=== PATIENT | male | born 1980 | race Caucasian/White ===

== ENCOUNTER → 2017-09-03 10:20 | Outpatient (CLI) | payer OTHER, SELFPAY ==
[2017-09-04 10:03] LABS: Vitamin B12 473 pg/mL (211-911); Vitamin D,25 Hydroxy 39.4 ng/mL (29.95-100.01)
[2017-09-08 14:07] LABS: Testosterone, Free 8.37 ng/dL (5.00-21.00)
[2017-09-08 14:28] LABS: Testosterone, % Free 2.65 % (1.50-4.20); Testosterone, Total 316 ng/dL (264-916)
== END ==
PROVIDERS: Visit Provider Family Medicine
DX: E34.9 Endocrine disorder, unspecified (principal); E53.8 Deficiency of other specified B group vitamins; E55.9 Vitamin D deficiency, unspecified
CPT/HCPCS: 36415; 82306; 82607; 84402; 84403

== ENCOUNTER → 2019-04-21 15:14 | Outpatient (CLI) | payer OTHER, SELFPAY ==
[2018-05-02 17:41] VITALS: BMI 26.3
[2019-04-21 16:15] LABS: Hematocrit 49.8 % (40-54); Hemoglobin 17.4 g/dL (13.0-16.5); Mean Corp Hgb Conc 34.9 g/dL (32-36); Mean Corpuscular Hgb 32.7 pg (27.0-32.0); Mean Corpuscular Volume 93.6 fL (80-94); Mean Platelet Vol. 10.1 fl (6.2-12.0); Platelet Count 235 K/mm3 (150-450); RBC Distribution Width CV 11.1 % (11.6-14.6); RBC Distribution Width SD 37.6 fl (35.1-43.9); Red Blood Count 5.32 M/mm3 (4.6-6.2); White Blood Count 6.2 K/mm3 (4.4-11.0)
[2019-04-21 16:21] LABS: Anion Gap 2 (5-15); BUN 14 mg/dL (7-18); Chloride 106 mmol/L (98-107); Creatinine, Serum 0.93 mg/dL (0.70-1.30); EST Glomerular Filtration Rate 95 mL/min (>60); Est Glom Filt Rate - Afr Amer 115 mL/min (>60); Glucose 119 mg/dL (74-106); Potassium 4.2 mmol/L (3.5-5.1); Sodium Level 140 mmol/L (136-145); Thyroid Stim Hormone (TSH) 1.37 uIU/mL (0.358-3.74)
[2019-04-22 09:08] LABS: Vitamin B12 350 pg/mL (211-911); Vitamin D,25 Hydroxy 18.1 ng/mL (29.95-100.01)
[2019-04-23 16:06] LABS: Ferritin 353 ng/mL (26-388); Iron 136 ug/dL (65-175); Iron Binding Capacity,Total 292 ug/dL (250-450); PERCENT IRON SATURATION 46.6 % (15.0-55.0)
== END ==
PROVIDERS: Family Provider Family Medicine; PCP Family Medicine; Visit Provider Family Medicine
DX: R40.0 Somnolence (principal)
CPT/HCPCS: 36415; 80048; 82306; 82607; 82728; 82746; 83540; 83550; 84443; 85027

== ENCOUNTER 2019-07-15 18:00 | Outpatient (RCR) | payer OTHER, SELFPAY ==
[2018-05-02 17:41] VITALS: BMI 26.3
--- NOTE | 2019-06-03 19:04 | HP.PTEVAL_ITS ---
Patient's Visit Information ISRA MITCHELL is a 38 year old M referred to Physical Therapy by Raphael Moctezuma MD with a diagnosis of LOW BACK PAIN FIBROMAYALGIA. Date of Evaluation: 06/03/19 Physical Therapist: Dominick Damon PT, Cert MDT, OCS - Visit Plan Frequency: 2x /Week Duration: 4 Weeks Plan: PT INMTERVENTIONS GRADED LUMBAR ROM,DLS ABD/BACK,POSTURAL EX'S,LE FLEXABLITY - Subjective Findings: This 38 y/o male presents to physical therapy with low back pain.Patient has LBP 20 years which developed in cfronic pain. Patient over the years has had MRI's,CATSCAN,NERVE CODUCTION which is - no etiology - 10 years ago.Patient has been on pain Ultram.Too much intactivity makes symptoms wosre. 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 Patient pain is located lumbar symmtrical decraibed ache/tightness. Aggravatingfactors standing,walking bending ,lifting pain is 24/7 symptoms contstant. Alleviating factors movement some better. Denies parathesia/tingling. Hien//bladder -. Coughing/sneezing -. Pateint sleeping good. Patient symptoms affects QOL/ADLS job demands. Patient seen chiropractor didnt help. SOCAIL: . VOCATION: retired,wireless sales manager maintaince - Pain Bilateral Back Pain Intensity (Out of 10): 6 Pain Intensity Range: 10 - Objective POSTURE: milf foward posture. GAIT: reciprocal pattern. NEURO: denies parathesia/tingling ,reflexes L3-4,L4-5,L5-S1. SYMMTRIES: alighn. PALAPTION: unremarkable. MMT: quads/hams/hip 4/5 ,ankle 5/5. FLEXABLITY: hams mod tight. LUMBAR ROM: flexion WFL,extension mod /severe loss hurt,side glides min loss. MUSCULAR ENDURANCE: FAIR 30SEC HOLD BEFORE INCREASE LORDISIS - Special Tests L/S Slump test left side: Negative L/S Slump test right side: Negative L/S Left Straight Leg Raise: Negative L/S Right Straight Leg Raise: Negative Lumbar Standing: Flexion - Mechanical Response: No effect Lumbar Standing: Flexion - Symptoms During Testing: No effect Lumbar Standing: Flexion - Symptoms After Testing: No effect Lumbar Standing: Extension - Mechanical Response: No effect Lumbar Standing: Extension - Symptoms During Testing: Increases Lumbar Standing: Extension - Symptoms After Testing: No worse Lumbar Standing: Right Side Glides - Mechanical Response: No effect Lumbar Standing: Right Side [place] - Symptoms During Testing: No effect Lumbar Standing: Right Side [place] - Symptoms After Testing: No effect Lumbar Standing: Left Side [place] - Mechanical Response: No effect Lumbar Standing: Left Side [place] - Symptoms During Testing: No effect Lumbar Standing: Left Side [place] - Symptoms After Testing: No effect - Goals Goal 1:: Independant with HEP Goal Time Frame: 4-6 Weeks Goal 2:: Independant with posture/body mechanics Goal Time Frame: 4-6 Weeks Goal 3:: Decrease low back pain by 50% or > to improve function Goal Time Frame: 4-6 Weeks Goal 4:: Patient improve lumbar ROM for function of recovery Goal Time Frame: 4-6 Weeks Goal 5:: Patient to improve back owestry score by 5 points or > to improve QOL. - Rehabilitation Potential Physical Therapy Diagnosis: This patient has symmtrical lumbar pain with chronic symptoms poor lumbar extension,pain derease core strength ,tight hamstrings thus benifit from skilled PT . Rehabilitation Potential: Good - Anticipated Interventions Patient/Client Instruction: Educate patient on: Condition, Plan of Care For the Purpose of:: To decrease pain, To increase ROM, To improve muscle performance and motor function, To improve ability to perform ADL's, To increase tolerance to activity/condition/position, To improve ability of physical actions for home/community/work/leisure, To improve health of tissue, To decrease soft tissue restriction, To increase flexibility/ROM, To improve endurance, To reduce risk of recurrence, To improve ability to perform tasks related to life management Therapeutic Exercise to Include: Strength training, Body mechanics, Postural training, Flexibilty training, Dynamic Lumbar Stabilization For the Purpose of:: To decrease pain, To increase ROM, To improve muscle performance and motor function, To increase tolerance to activi ty/condition/position, To improve ability of physical actions for home/community/work/leisure, To improve health of tissue, To decrease soft tissue restriction, To increase flexibility/ROM TENS: Yes IF ES: Yes Cryotherapy (ice pack, ice massage): Yes Thermo therapy (hot pack): Yes Ultrasound (thermal/non thermal): Yes For the Purpose of:: To decrease pain, To increase ROM, To improve nutrient delivery to tissue, To increase oxygenation perfusion, To improve health of tissue, To decrease soft tissue restriction, To increase flexibility/ROM Thank you for the opportunity to evaluate your patient. For Medicare and Medicare HMO plans, please review the plan of care and approve it. It will need to be FAXED BACK to us at [phone] for Medicare purposes. For Medicare only, by signing this I certify the plan of care. Please let me know if there are questions or concerns regarding this plan of care. Physician Signature: Date:
--- NOTE | 2019-11-27 10:41 | HP.PT.NRP ---
ISRA MITCHELL was seen in my office for initial evaluation on 06/03/19. The following Plan of Care was established for this patient: Initial Frequency: 2x /Week Initial Duration: 4 Weeks Patient/Client Instruction: Educate patient on: Condition, Plan of Care For the Purpose of:: To decrease pain, To increase ROM, To improve muscle performance and motor function, To improve ability to perform ADL's, To increase tolerance to activity/condition/position, To improve ability of physical actions for home/community/work/leisure, To improve health of tissue, To decrease soft tissue restriction, To increase flexibility/ROM, To improve endurance, To reduce risk of recurrence, To improve ability to perform tasks related to life management Therapeutic Exercise to Include: Strength training, Body mechanics, Postural training, Flexibilty training, Dynamic Lumbar Stabilization For the Purpose of:: To decrease pain, To increase ROM, To improve muscle performance and motor function, To increase tolerance to activity/condition/position, To improve ability of physical actions for home/community/work/leisure, To improve health of tissue, To decrease soft tissue restriction, To increase flexibility/ROM TENS: Yes IF ES: Yes Cryotherapy (ice pack, ice massage): Yes Thermo therapy (hot pack): Yes Ultrasound (thermal/non thermal): Yes For the Purpose of:: To decrease pain, To increase ROM, To improve nutrient delivery to tissue, To increase oxygenation perfusion, To improve health of tissue, To decrease soft tissue restriction, To increase flexibility/ROM This patient was last seen in our office 06/03/19. Pertinent comments regarding their Physical therapy will appear below: Patient seen for PT for lumbar pain focusing on DLS with patient improving with less pain thus is d/c . At this point I will be discontinuing this patient from physical therapy. I would be happy to see this patient again in the future if found appropriate by the physician. Thank you! Dominick Damon, PT, Cert MDT, OCS
== END 2019-07-15 19:00 | disposition home or self-care (01) ==
LOC: PT 18:00
PROVIDERS: PCP Family Medicine; Visit Provider Family Medicine
DX: M79.7 Fibromyalgia (principal); M54.5 Low back pain
CPT/HCPCS: 97110; 97161

== ENCOUNTER → 2020-05-12 16:02 | Outpatient (CLI) | payer OTHER, SELFPAY ==
[2018-05-02 17:41] VITALS: BMI 26.3
[2020-05-12 17:50] LABS: Hematocrit 46.5 % (40-54); Hemoglobin 15.9 g/dL (13.0-16.5); Mean Corp Hgb Conc 34.2 g/dL (32-36); Mean Corpuscular Hgb 31.9 pg (27.0-32.0); Mean Corpuscular Volume 93.4 fL (80-94); Mean Platelet Vol. 10.1 fl (6.2-12.0); Platelet Count 256 K/mm3 (150-450); RBC Distribution Width CV 11.1 % (11.6-14.6); RBC Distribution Width SD 37.7 fl (35.1-43.9); Red Blood Count 4.98 M/mm3 (4.6-6.2); White Blood Count 6.3 K/mm3 (4.4-11.0)
[2020-05-12 18:12] LABS: ALB/GLOB Ratio 1.3 RATIO (0.9-2.4); AST(SGOT) 23 U/L (15-37); Alanine Aminotransfer ALT/SGPT 47 U/L (16-61); Albumin, Serum 4.3 g/dL (3.2-5.0); Alkaline Phosphatase 125 U/L (45-117); Anion Gap 4 (5-15); BUN 14 mg/dL (7-18); BUN/Creat Ratio 16.7 RATIO (10-20); Calcium,Total 8.6 mg/dL (8.5-10.1); Chloride 105 mmol/L (98-107); Creatinine, Serum 0.84 mg/dL (0.70-1.30); EST Glomerular Filtration Rate 107 mL/min (>60); Est Glom Filt Rate - Afr Amer 130 mL/min (>60); Globulin 3.3 g/dL (2.2-4.2); Glucose 65 mg/dL (74-106); Potassium 3.5 mmol/L (3.5-5.1); Protein, Total 7.6 g/dL (6.4-8.2); Sodium Level 139 mmol/L (136-145)
[2020-05-12 18:59] LABS: Vitamin B12 > 2000 pg/mL (211-911)
[2020-05-12 19:00] LABS: Vitamin D,25 Hydroxy 29.9 ng/mL
== END ==
PROVIDERS: Family Medicine; PCP Family Medicine; Visit Provider Family Medicine
DX: E55.9 Vitamin D deficiency, unspecified (principal); E53.8 Deficiency of other specified B group vitamins; F32.9 Major depressive disorder, single episode, unspecified
CPT/HCPCS: 36415; 80053; 82306; 82607; 85027

== ENCOUNTER 2020-08-06 08:59 | Outpatient (RCR) | payer OTHER, SELFPAY ==
[2018-05-02 17:41] VITALS: BMI 26.3
== END 2020-09-22 23:59 ==
LOC: IMMUN 08:59
PROVIDERS: PCP Family Medicine; Referring Provider Family Medicine; Visit Provider Family Medicine
DX: Z23 Encounter for immunization (principal)
CPT/HCPCS: 0001A; 0002A; 91300

== ENCOUNTER → 2020-08-10 16:02 | Outpatient (CLI) | payer OTHER, SELFPAY ==
[2018-05-02 17:41] VITALS: BMI 26.3
[2020-08-10 18:23] LABS: Vitamin B12 1864 pg/mL (211-911); Vitamin D,25 Hydroxy 31.5 ng/mL
== END ==
PROVIDERS: PCP Family Medicine; Visit Provider Family Medicine
DX: E53.8 Deficiency of other specified B group vitamins (principal); E55.9 Vitamin D deficiency, unspecified
CPT/HCPCS: 36415; 82306; 82607

== ENCOUNTER 2023-02-06 18:17 | Emergency (ER) | payer OTHER, SELFPAY ==
[2023-02-06 18:19] VITALS: BP 132/82; PULSE 76; RESP 17; TEMP 36.4; O2SAT 98; BMI 28.4
--- NOTE | 2023-02-06 18:25 | US_ITS ---
STUDY: SCROTUM ULTRASOUND REASON FOR EXAM: Male, 42 years old. PAIN TECHNIQUE: Ultrasound evaluation of the scrotum was performed with color Doppler and static weaver-scale imaging. COMPARISON: None. FINDINGS: RIGHT TESTICLE INTRATESTICULAR: There is a normal size of the right testicle. The right testicle measures 4.4 x 3.1 x 2.4 cm. There is a homogenous echotexture. There is normal arterial and normal venous vascularity. There is no demonstrated right testicular mass or cyst. EXTRATESTICULAR: The epididymis is normal in size. The epididymis head measures 1.0 x 1.2 x 1.2 cm. There is normal vascularity of the epididymis. There is a well-defined cystic structure within the epididymis, without internal echoes, consistent with an epididymal cyst. There is no demonstrated hydrocele. There is no demonstrated varicocele. There is no demonstrated extratesticular mass or cyst. LEFT TESTICLE INTRATESTICULAR: There is a normal size of the left testicle. The left testicle measures 4.0 x 2.6 x 2.6 cm. There is a homogenous echotexture. There is normal arterial and normal venous vascularity. There is no demonstrated left testicular mass or cyst. EXTRATESTICULAR: The epididymis is normal in size. The epididymis head measures 0.9 x 1.4 x 1.1 cm. There is normal vascularity of the epididymis. There is no demonstrated epididymal cystic structure. There is no demonstrated hydrocele. There is no demonstrated varicocele. There is no demonstrated extratesticular mass or cyst. US/Testicular with Arterial Flow IMPRESSION: Normal bilateral testicles. Electronically Signed: Julian Roblero MD at 19:34 EDT ,
--- NOTE | 2023-02-06 21:08 | EDS_ITS ---
HPI History of Present Illness Chief Complaint: Male Pain/Injury Informant: patient and spouse/S.O. Pain Onset: Days (4) Context: Gradual Onset Timing: Continuous Worsened by: Sitting Relieved by: Nothing Narrative Narrative: Patient presents with right testicular pain that has been getting worse over the last 4 days. Patient describes pain as aching. Patient states the pain radiates into his right inguinal area. Patient states it is worse with sitting. Patient denies any fevers or chills. Patient denies any nausea or vomiting. Patient denies any dysuria or hematuria. Patient denies any back pain. Patient denies any urethral discharge. Patient states he saw his primary care physician for this today. Patient was then referred to the emergency department for testicular ultrasound. [facility] Medical History Acute pharyngitis, unspecified COVID-19 Home Medications ciprofloxacin HCl 500 mg tablet 500 mg PO BID #14 TABLETS 02/06/23 [Rx Last Taken Unknown] escitalopram oxalate 10 mg tablet 10 mg PO DAILY 02/06/23 [History Last Taken Unknown] tramadol 200 mg tablet,extended release 24 hr 200 mg PO Q24H 02/06/23 [History Last Taken Unknown] tramadol 50 mg tablet 50 mg PO DAILY PRN 02/06/23 [History Last Taken Unknown] Allergy/AdvReac Type Severity Reaction Status Date / Time amoxicillin [From Augmentin] AdvReac Rash Verified 02/06/23 18:19 clavulanic acid AdvReac Rash Verified 02/06/23 18:19 [From Augmentin] Surgical History no surgical history no surgical history Social History Smoking Status: Never smoker ROS ROS ED Constitutional Constitutional ED: Denies chills or fever(s) Eyes Eyes: Denies blurry vision or change in vision ENT ENT ED: Denies rhinorrhea or sore throat Cardiovascular Cardiovascular: Denies chest pain or palpitations Respiratory/Chest Respiratory/Chest: Denies cough or dyspnea Gastrointestinal Gastrointestinal: Denies nausea or vomiting Genitourinary Genitourinary ED: Reports as per HPI and testicular swelling; Denies dysuria or hematuria Musculoskeletal Musculoskeletal: Denies back pain or neck pain Integumentary Denies abscess or rash Neurologic Neurologic: Denies headache(s) or weakness Allergic/Immunologic Allergic/Immunologic ED: Denies mouth swelling or urticaria EXAM Physical Exam Const Vital Signs: 02/06/23 18:19 Temperature 97.6 F L Temperature Source Temporal Pulse Rate 76 Respiratory Rate 17 Blood Pressure 132/82 H Blood Pressure Mean 98 Pulse Ox 98 Oxygen Delivery Method Room Air Positive well nourished and well developed General Appearance ED: well developed and NAD HEENT Reports moist mucous membranes Neck supple and no JVD Resp normal respiratory effort and clear to auscultation bilaterally Cardio regular rate and regular rhythm GI non-tender and non-distended Auscultation: normoactive bowel sounds Palpation: soft Narrative: There isThere is tenderness over the right testicle. There is a vertical lie. The epididymis is posterior. There is tenderness mainly over the epididymis. Is mild edema of the right testicle. There is no mass palpated. There is no inguinal hernia noted. Testes: testicular swelling Extremity normal to inspection Neuro oriented x3, CN's II-XII intact bilaterally, moves all extremities, no focal motor deficits and no sensory deficits noted Sensorium / Orientation: alert Motor Exam: strength 5/5 throughout Psych mental status grossly normal MDM MDM MDM Narrative Medical decision making narrative: Differential diagnosis includes testicular torsion and epididymitis. Testicular ultrasound will be obtained to assess for testicular torsion. Radiography Diagnostic Testing: Clinical Impression(s) from Imaging Studies Testicular Ultrasound 02/06/23 18:25 IMPRESSION: Normal bilateral testicles. Electronically Signed: Julian Roblero MD at 19:34 EDT , Testicular ultrasound was obtained. The testicles are normal bilaterally. This was interpreted by the radiologist and was also independently reviewed by myself. Treatment and Re-Evaluation Narrative: Patient was advised of his findings. Patient was advised that this is most likely epididymitis. Patient will be given a prescription for Cipro. Patient was instructed to follow-up with his primary care physician in 5 to 7 days for reevaluation. Patient was instructed to continue his tramadol as needed for pain. Patient understood and was agreeable with the plan. All questions were answered. Discharge Plan Triage Chief Complaint: Male Pain/Injury ED Provider: Aly Lopez Dx/Rx/DC Orders Clinical Impression: Epididymitis Instructions: ED Epididymitis Prescriptions: New ciprofloxacin HCl [ciprofloxacin HCl] 500 mg tablet 500 mg PO BID Qty: 14 0RF No Action tramadol 50 mg tablet 50 mg PO DAILY PRN escitalopram oxalate 10 mg tablet 10 mg PO DAILY tramadol 200 mg tablet extended release 24 hr 200 mg PO Q24H Primary Care Provider: Raphael Moctezuma Referrals: Raphael Moctezuma MD [Primary Care Provider] - 5-7 Days Disposition Disposition: Home, Self Care
[2023-02-06 21:37] VITALS: BP 128/67; PULSE 72; RESP 18; TEMP 37.2
== END 2023-02-06 21:39 | disposition home or self-care (01) ==
PROVIDERS: Emergency Provider Emergency Medicine; PCP Family Medicine; Visit Provider Emergency Medicine
DX: N45.1 Epididymitis (principal); Z86.16 Personal history of COVID-19
CPT/HCPCS: 76870; 93976; 99282

== ENCOUNTER 2023-08-12 16:33 | Emergency (ER) | payer OTHER, SELFPAY ==
[2023-08-12 16:33] VITALS: BP 137/83; PULSE 89; RESP 16; TEMP 36.4; O2SAT 96; BMI 27.8
--- NOTE | 2023-08-12 16:43 | EX.ED.UPPERE ---
HPI History of Present Illness Chief Complaint: Laceration Detail of Chief Complaint: 3 lacerations dorsal surface right long finger Informant: patient and spouse/S.O. Occured/Mechanism Mechanism/Context: Yes injury and Yes blunt trauma Onset/Context/Timing Onset: Today and Hours Context: Sudden Onset Timing: Continuous Quality of Pain: Dull and Throbbing Location: Middle and proximal phalanx right long finger Current Severity: Mild Maximum Severity: Moderate Worsened by: Palpation Relieved by: Improves with rest Associated Symptoms Associated Symptoms: Negative for Parasthesia, Weakness or Loss of Funtion Narrative Narrative: Patient is a 42-year-old [id number] male. Tetanus was approximate 5 years ago. He presents with blunt injury to his right long finger. He states the bracket on the garage door twisted and struck his finger. He has a total of 3 laceration on the dorsal surface. 2 are near the proximal portion of the proximal phalanx and 1 is distal of the DIP joint. He denies paresthesia, anesthesia or motor weakness. Tetanus Immunization: 5-10 years Prior similar symptoms: No Recent Illness/Hospitalization: No PFSH PFS Medical History Acute pharyngitis, unspecified COVID-19 Home Medications ciprofloxacin HCl 500 mg tablet 500 mg PO BID #14 TABLETS 02/06/23 [Rx Last Taken Unknown] escitalopram oxalate 10 mg tablet 10 mg PO DAILY 02/06/23 [History Last Taken Unknown] tramadol 200 mg tablet,extended release 24 hr 200 mg PO Q24H 02/06/23 [History Last Taken Unknown] tramadol 50 mg tablet 50 mg PO DAILY PRN 02/06/23 [History Last Taken Unknown] clindamycin HCl 300 mg capsule (Cleocin HCl) 300 mg PO Q6H #12 CAPSULES 08/12/23 [Rx Last Taken Unknown] Allergy/AdvReac Type Severity Reaction Status Date / Time amoxicillin [From Augmentin] AdvReac Rash Verified 08/12/23 16:35 clavulanic acid AdvReac Rash Verified 08/12/23 16:35 [From Augmentin] Social History (Updated 08/12/23 @ 16:[address] Chaparro Lake MD) household members: spouse and children Smoking Status: Never smoker ROS ROS ED Neurologic Neurologic: Denies paresthesias or weakness Hematologic/Lymphatic Hematologic/Lymphatic: Denies easy bleeding or easy bruising EXAM Physical Exam Const Vital Signs: 08/12/23 16:33 Temperature 97.5 F L Temperature Source Temporal Pulse Rate 89 Respiratory Rate 16 Blood Pressure 137/83 H Blood Pressure Mean 101 Pulse Ox 96 Oxygen Delivery Method Room Air Positive well nourished and well developed General Appearance ED: well developed and NAD HEENT normocephalic and atraumatic Eyes PERRL and EOMs intact bilaterally Neck full ROM Resp normal respiratory effort Cardio regular rate and regular rhythm Extremity Negative for normal to inspection Extremity Narrative: There is soft tissue swelling with discoloration and pain evaluation of the proximal phalanx. There is 2 lacerations near the knuckle of the right long finger. The extensor commonest tendon is functionally intact. The flexor digitorum superficialis and flexor digitorum profundus are intact. Capillary refill is normal. Sensation is normal. Neuro oriented x3 and CN's II-XII intact bilaterally Neuro Narrative: Median, radial and ulnar function intact. Sensorium / Orientation: alert Psych mental status grossly normal Skin Skin Narrative: Lacerations dorsal surface right long finger MDM MDM MDM Narrative Medical decision making narrative: X-ray was obtained to determine fracture versus contusion. If there is a fracture this will require antibiotics. Digit was excised by metacarpal nerve block. Wound was irrigated. Please see procedure note Radiography Chest X-Ray - ED: Read by ED Physician (Three-view x-ray of the right long finger reveals a small type fracture shaft proximal phalanx radial side. There is no radiolucent line to the opposite cortex. This is apparently reviewed interpreted by me at 1721) Procedures Other Procedures Procedure(s): There is a linear laceration only proximal portion of the right long finger that is 2 cm in length and there is a V-shaped laceration on the dorsal surface near the MCP joint that is 1 cm in length and there is a linear laceration 2 and half centimeters distal ulnar side of the finger. The digit was anesthetized by metacarpal block followed by a digital block. Wound was irrigated with a total of 500 cc of normal saline total. Using 5-0 Ethilon simple interrupted sutures placed. The longer the 2 proximal laceration required 3 in the V-shaped required 2. The distal laceration required 3. There is a total of 8 stitches. Discharge Plan Triage Chief Complaint: Laceration ED Provider: Chaparro Lake Dx/Rx/DC Orders Clinical Impression: Open fracture of proximal phalanx of right middle finger, Laceration of finger, right Instructions: ED Fracture, Finger, Open, ED Laceration Extremity Prescriptions: New clindamycin HCl [Cleocin HCl] 300 mg capsule 300 mg PO Q6H Qty: 12 0RF No Action tramadol 50 mg tablet 50 mg PO DAILY PRN escitalopram oxalate 10 mg tablet 10 mg PO DAILY tramadol 200 mg tablet extended release 24 hr 200 mg PO Q24H ciprofloxacin HCl [ciprofloxacin HCl] 500 mg tablet 500 mg PO BID Qty: 14 0RF Primary Care Provider: J Carlos Moctezuma Referrals: J Carlos Moctezuma MD [Primary Care Provider] - Lio Kay DO [Med Staff - Active Staff] - 2 Days for wound check Activity Restrictions/Additional Instructions: 1. Keep wounds absolutely clean and dry 2. You may change the tape on the splint every 2 to 3 days 3. Take antibiotics until gone 4. Wear splint at all times Disposition Disposition: Home, Self Care
--- NOTE | 2023-08-12 16:45 | RAD_ITS ---
EXAM: XR RIGHT FINGERS, 2 OR MORE VIEWS CLINICAL INDICATION: Injury/Pain -- Long finger over middle and proximal phalanx TECHNIQUE: Frontal, lateral and oblique views of the fingers of the right hand. COMPARISON: No relevant prior studies available. FINDINGS: BONES/JOINTS: There is a small cortical fracture of the proximal third phalanx. There is a small radiopaque foreign bodies. Preservation of the joint space. No sclerotic or destructive changes observed. SOFT TISSUES: Soft tissues. No soft tissue swelling or gas. No radiopaque foreign body. RAD/Finger(s) Min 2 Views IMPRESSION: Cortical irregularity of the proximal third phalanx compatible with a small fracture. There are also radiopaque foreign bodies in the overlying soft tissues. Electronically Signed: Yoni Moreno MD at 17:48 EDT ,
[2023-08-12] MEDS: Lidocaine 1% (20 ml mdv) 20 ML Vial INFILT (16:56)
[2023-08-12] MEDS: Clindamycin HCl 150 MG Capsule 300 MG PO (16:57)
[2023-08-12] MEDS: Diphth,Pertuss(Acell),Tet Vac 0.5 ML Vial IM (17:07)
[2023-08-12 18:00] VITALS: BP 138/86; PULSE 78; RESP 18; TEMP 36.6; O2SAT 98
== END 2023-08-12 18:27 | disposition home or self-care (01) ==
LOC: ED 17:43
PROVIDERS: Emergency Provider Emergency Medicine; PCP Family Medicine; Visit Provider Emergency Medicine
DX: S62.642B Nondisplaced fracture of proximal phalanx of right middle finger, initial encounter for open fracture (principal); W26.8XXA Contact with other sharp object(s), not elsewhere classified, initial encounter; Y92.59 Other trade areas as the place of occurrence of the external cause
CPT/HCPCS: 12002; 73140; 90471; 90715; 99283

== ENCOUNTER → 2024-03-09 | Outpatient (CLI) | payer OTHER, SELFPAY ==
[2024-03-09 07:48] LABS: Hematocrit 47.8 % (40-54); Hemoglobin 16.8 g/dL (13.0-16.5); Mean Corp Hgb Conc 35.1 g/dL (32-36); Mean Corpuscular Hgb 32.2 pg (27.0-32.0); Mean Corpuscular Volume 91.6 fL (80-94); Mean Platelet Vol. 9.6 fl (6.2-12.0); Platelet Count 215 K/mm3 (150-450); RBC Distribution Width CV 11.1 % (11.6-14.6); RBC Distribution Width SD 37.5 fl (35.1-43.9); Red Blood Count 5.22 M/mm3 (4.6-6.2); White Blood Count 4.9 K/mm3 (4.4-11.0)
[2024-03-09 08:58] LABS: ALB/GLOB Ratio 1.2 RATIO (0.9-2.4); AST(SGOT) 18 U/L (15-37); Alanine Aminotransfer ALT/SGPT 44 U/L (16-61); Alkaline Phosphatase 129 U/L (45-117); Anion Gap 5 (5-15); BUN 10 mg/dL (7-18); BUN/Creat Ratio 12.2 RATIO (10-20); Calcium,Total 8.9 mg/dL (8.5-10.1); Chloride 107 mmol/L (98-107); Cholesterol 168 mg/dL (200); Creatinine, Serum 0.82 mg/dL (0.70-1.30); EST Glomerular Filtration Rate 108 mL/min (>60); Est Glom Filt Rate - Afr Amer 130 mL/min (>60); Globulin 3.2 g/dL (2.2-4.2); Glucose 102 mg/dL (74-106); High Density Lipoprotein 46 mg/dL; PSA,Total - Annual Screen 0.47 ng/mL (0.00-4.00); Potassium 4.3 mmol/L (3.5-5.1); Protein, Total 7.2 g/dL (6.4-8.2); Sodium Level 142 mmol/L (136-145); T4 Free Direct 0.98 ng/dL (0.76-1.46); Triglycerides 147 mg/dL; Uric Acid 5.4 mg/dL (3.5-7.2); Very Low Density Lipoprotein 29 mg/dL (5-40)
[2024-03-11 08:35] LABS: Vitamin B12 404 pg/mL (211-911); Vitamin D,25 Hydroxy 33.8 ng/mL
[2024-03-15 12:08] LABS: Testosterone, % Free 3.32 % (1.50-4.20); Testosterone, Free 13.61 ng/dL (5.00-21.00); Testosterone, Total 410 ng/dL (264-916)
== END | disposition home or self-care (01) ==
LOC: LAB 07:31
DX: Z00.00 Encounter for general adult medical examination without abnormal findings (principal); G89.4 Chronic pain syndrome
CPT/HCPCS: 36415; 80053; 80061; 82306; 82607; 83036; 84153; 84402; 84403; 84439; 84443; 84550; 85027; G0103

== ENCOUNTER 2024-12-23 18:30 | Outpatient (RCR) | payer OTHER, SELFPAY ==
--- NOTE | 2024-11-18 19:18 | HP.PTEVAL ---
Patient's Visit Information Visit Information Visit Information: ISRA MITCHELL is a 44 year old M referred to Physical Therapy by Dr. You Doe DO with a diagnosis of LUMBAR PAIN. Date of Evaluation: 11/18/24 Physical Therapist: Dominick Dmaon PT, Cert MDT, OCS Visit Plan Frequency: 2x /Week Duration: 4 Weeks Plan: PT INTERVENTIONS LUMBAR ROM ,FLEXABILITY ,DLS ,POSTURAL EX'S AND DLS Subjective Subjective: This 44 y/o male presents to physical therapy with lumbar pain. Patient has lumbar pain ~ [address] nazia HENDRIX. Patient has had PT in past . Patient has had no recent imaging . Patient has had prior PT . Patient medication ultram. Patient pain located symmetrical lumbar with radicular symptoms in legs described as burning. Patient aggravating factors sitting,to much of activity bending,lifting. Alleviating factors medication rest . Coughing/sneezing-. Bowel/bladder-.C/O paresthesia/tingling in legs. Pain doesn't affects sleeping. Patient has had no trauma/injury. Patient tried PT in past. Patient has had MRI/CTSCAN in past. Patient condition affects QOL and function. SOCIAL: VOCATION: Own business Pain Bilateral Back: Pain Intensity (Out of 10): 4 Pain Intensity Range: 8 Bilateral Lower Extremity: Pain Intensity (Out of 10): 6 Pain Intensity Range: 6, 7 and 8 Objective Objective: POSTURE: mild forward posture GAIT: reciprocal pattern PALPATION: tender paraspinals /erector spinal, NEURO: denies paresthesia/tingling ,reflexes L3-4,L4-5,L5-S1 3/3 MMT: quads/hams 4/5 ,hip flexion 4/5 ,ankle 5/5 LUMBAR ROM: flexion mod loss ,extension mod loss ,side glides mod loss , FLEXABILITY: hamstrings mod tight Special Tests L/S Slump test left side: Negative L/S Slump test right side: Negative L/S Left Straight Leg Raise: Negative L/S Right Straight Leg Raise: Negative Lumbar Standing: Flexion - Mechanical Response: No effect Lumbar Standing: Flexion - Symptoms During Testing: Increases Lumbar Standing: Flexion - Symptoms After Testing: No worse Lumbar Standing: Extension - Mechanical Response: No effect Lumbar Standing: Extension - Symptoms During Testing: Increases Lumbar Standing: Extension - Symptoms After Testing: No worse Lumbar Standing: Right Side Glides - Mechanical Response: No effect Lumbar Standing: Right Side [place] - Symptoms During Testing: Increases Lumbar Standing: Left Side [place] - Mechanical Response: No effect Lumbar Standing: Left Side [place] - Symptoms During Testing: Increases Lumbar Standing: Left Side [place] - Symptoms After Testing: No worse Lumbar Lying: Flexion - Mechanical Response: No effect Lumbar Lying: Flexion - Symptoms During Testing: Increases Lumbar Lying: Flexion - Symptoms After Testing: No worse Lumbar Lying: Extension - Mechanical Response: No effect Lumbar Lying: Extension - Symptoms During Testing: Increases Lumbar Lying: Extension - Symptoms After Testing: No worse Balance/Special Test Scores Oswestry Low Back Score: 19 Goals Goal 1:: Patient to be I with HEP for back Goal Time Frame: 4-6 Weeks Goal 2:: Patient to improve lumbar ROM for lumbar ROM for function of recovery for ADL and job demands Goal Time Frame: 4-6 Weeks Goal 3:: Patient to demonstrate 50% improvement with less pain and improved function with job demands Goal Time Frame: 4-6 Weeks Goal 4:: Patient to improve back oswestry score by 5 points to improve QOL and function Goal Time Frame: 4-6 Weeks Rehabilitation Potential Physical Therapy Diagnosis: This patient has lumbar pain with multiple level of lumbar dysfunction with pain ,poor lumbar ROM ,pain with positioning and motion testing end range thus benefit from skilled PT Rehabilitation Potential: Good Anticipated Interventions Patient/Client Instruction: Educate patient on: Condition and Plan of Care For the Purpose of:: To decrease pain, To increase ROM, To improve muscle performance and motor function, To improve ability to perform ADL's, To increase tolerance to activity/condition/position, To improve ability of physical actions for home/community/work/leisure, To improve health of tissue, To decrease soft tissue restriction and To increase flexibility/ROM Therapeutic Exercise to Include: Strength training, Body mechanics, Postural training, Flexibilty training and Dynamic Lumbar Stabilization For the Purpose of:: To decrease pain, To increase ROM, To improve muscle performance and motor function, To increase tolerance to activity/condition/position, To improve ability of physical actions for home/community/work/leisure, To improve health of tissue, To decrease soft tissue restriction and To increase flexibility/ROM Text: Thank you for the opportunity to evaluate your patient. For Medicare and Medicare HMO plans, please review the plan of care and approve it. It will need to be FAXED BACK to us at [phone] for Medicare purposes. For Medicare only, by signing this I certify the plan of care. Please let me know if there are questions or concerns regarding this plan of care. Physician Signature: Date:
--- NOTE | 2024-11-20 08:13 | HP.PTEVAL_ITS ---
Patient's Visit Information Visit Information Visit Information: ISRA MITCHELL is a 44 year old M referred to Physical Therapy by Dr. You Doe DO with a diagnosis of LUMBAR PAIN ,MUSCLE WEAKNESS CORE. Date of Evaluation: 11/18/24 Physical Therapist: Dominick Daomn PT, Cert MDT, OCS Visit Plan Frequency: 2x /Week Duration: 4 Weeks Plan: PT INTERVENTIONS LUMBAR ROM ,FLEXABILITY ,DLS ,POSTURAL EX'S AND DLS Subjective Subjective: This 44 y/o male presents to physical therapy with lumbar pain. Patient has lumbar pain ~ [address] mandujano PT. Patient has had PT in past . Patient has had no recent imaging . Patient has had prior PT . Patient medication ultram. Patient pain located symmetrical lumbar with radicular symptoms in legs described as burning. Patient aggravating factors sitting,to much of activity bending,lifting. Alleviating factors medication rest . Coughing/sneezing-. Bowel/bladder-.C/O paresthesia/tingling in legs. Pain doesn't affects sleeping. Patient has had no trauma/injury. Patient tried PT in past. Patient has had MRI/CTSCAN in past. Patient condition affects QOL and function. SOCIAL: VOCATION: Own business Pain Bilateral Back: Pain Intensity (Out of 10): 4 Pain Intensity Range: 8 Bilateral Lower Extremity: Pain Intensity (Out of 10): 6 Pain Intensity Range: 6, 7 and 8 Objective Objective: POSTURE: mild forward posture GAIT: reciprocal pattern PALPATION: tender paraspinals /erector spinal, NEURO: denies paresthesia/tingling ,reflexes L3-4,L4-5,L5-S1 3/3 MMT: quads/hams 4/5 ,hip flexion 4/5 ,ankle 5/5 LUMBAR ROM: flexion mod loss ,extension mod loss ,side glides mod loss , FLEXABILITY: hamstrings mod tight Special Tests L/S Slump test left side: Negative L/S Slump test right side: Negative L/S Left Straight Leg Raise: Negative L/S Right Straight Leg Raise: Negative Lumbar Standing: Flexion - Mechanical Response: No effect Lumbar Standing: Flexion - Symptoms During Testing: Increases Lumbar Standing: Flexion - Symptoms After Testing: No worse Lumbar Standing: Extension - Mechanical Response: No effect Lumbar Standing: Extension - Symptoms During Testing: Increases Lumbar Standing: Extension - Symptoms After Testing: No worse Lumbar Standing: Right Side [place] - Mechanical Response: No effect Lumbar Standing: Right Side [place] - Symptoms During Testing: Increases Lumbar Standing: Left Side [place] - Mechanical Response: No effect Lumbar Standing: Left Side [place] - Symptoms During Testing: Increases Lumbar Standing: Left Side [place] - Symptoms After Testing: No worse Lumbar Lying: Flexion - Mechanical Response: No effect Lumbar Lying: Flexion - Symptoms During Testing: Increases Lumbar Lying: Flexion - Symptoms After Testing: No worse Lumbar Lying: Extension - Mechanical Response: No effect Lumbar Lying: Extension - Symptoms During Testing: Increases Lumbar Lying: Extension - Symptoms After Testing: No worse Balance/Special Test Scores Oswestry Low Back Score: 19 Goals Goal 1:: Patient to be I with HEP for back Goal Time Frame: 4-6 Weeks Goal 2:: Patient to improve lumbar ROM for lumbar ROM for function of recovery for ADL and job demands Goal Time Frame: 4-6 Weeks Goal 3:: Patient to demonstrate 50% improvement with less pain and improved function with job demands Goal Time Frame: 4-6 Weeks Goal 4:: Patient to improve back oswestry score by 5 points to improve QOL and function Goal Time Frame: 4-6 Weeks Rehabilitation Potential Physical Therapy Diagnosis: This patient has lumbar pain with multiple level of lumbar dysfunction with pain ,poor lumbar ROM ,pain with positioning and motion testing end range thus benefit from skilled PT Rehabilitation Potential: Good Anticipated Interventions Patient/Client Instruction: Educate patient on: Condition and Plan of Care For the Purpose of:: To decrease pain, To increase ROM, To improve muscle performance and motor function, To improve ability to perform ADL's, To increase tolerance to activity/condition/position, To improve ability of physical actions for home/community/work/leisure, To improve health of tissue, To decrease soft tissue restriction and To increase flexibility/ROM Therapeutic Exercise to Include: Strength training, Body mechanics, Postural training, Flexibilty training and Dynamic Lumbar Stabilization For the Purpose of:: To decrease pain, To increase ROM, To improve muscle performance and motor function, To increase tolerance to activity/condition/position, To improve ability of physical actions for home/community/work/leisure, To improve health of tissue, To decrease soft tissue restriction and To increase flexibility/ROM Text: Thank you for the opportunity to evaluate your patient. For Medicare and Medicare HMO plans, please review the plan of care and approve it. It will need to be FAXED BACK to us at [phone] for Medicare purposes. For Medicare only, by signing this I certify the plan of care. Please let me know if there are questions or concerns regarding this plan of care. Physician Signature: Date:
--- NOTE | 2024-12-23 18:54 | HP.PTDCSUM ---
Discharge Summary D/C summary: It has been my pleasure to treat ISRA MITCHELL referred by Dr. You Doe DO, with the diagnosis of LUMBAR PAIN ,MUSCLE WEAKNESS CORE for a total of 8 visit(s). Discharge Date: 12/23/24 Please see the following information for a summary of their discharge status. Subjective Subjective: The stretches seem to help the most Can do most things without pain . Standing most painful 5mins Better moving around Pain Bilateral Back: Pain Intensity (Out of 10): 5 Bilateral Lower Extremity: Pain Intensity (Out of 10): Unrated Overall Improvement % Improvement: 20 Objective Objective/Function: POSTURE: mild forward posture GAIT: reciprocal pattern PALPATION: tender paraspinals /erector spinal, NEURO: denies paresthesia/tingling ,reflexes L3-4,L4-5,L5-S1 3/3 MMT: quads/hams 4/5 ,hip flexion 4/5 ,ankle 5/5 LUMBAR ROM: flexion WFL ,extension MIN loss ,side glides WFL loss , FLEXABILITY: hamstrings mIN tight Goals Goal 1:: Patient to be I with HEP for back Goal Progress: Goal Met Goal 2:: Patient to improve lumbar ROM for lumbar ROM for function of recovery for ADL and job demands Goal Progress: Goal Met Goal 3:: Patient to demonstrate 50% improvement with less pain and improved function with job demands Goal Progress: Progressing Goal 4:: Patient to improve back oswestry score by 5 points to improve QOL and function Goal Progress: Progressing Plan Plan: D/C D/C Information Discharge Comments: HEP d/c sentence: If there are questions or concerns regarding this patient's physical therapy, please feel free to call me at [phone]. Thank you for the referral of this patient. Sincerely, Dominick Damon, PT, Cert MDT, OCS Balance/Gait/Functional tests Balance/Special Test Scores Oswestry Low Back Score: 9 Improvement % Improvement: 20
== END 2024-12-23 19:00 | disposition home or self-care (01) ==
LOC: PT 18:30
DX: M62.81 Muscle weakness (generalized) (principal); M54.50 Low back pain, unspecified
CPT/HCPCS: 97110; 97162; 97530